=== PATIENT | female | born 1990 | race Hispanic/Latino ===

== ENCOUNTER 2021-10-01 14:56 | Emergency (ER) | payer SELFPAY ==
[2021-10-01] VITALS (15 sets, daily range): BP systolic 98–114; BP diastolic 60–83; PULSE 62–106; RESP 16–22; TEMP 35.6; O2SAT 96–100
--- NOTE | 2021-10-01 15:15 | ECG_ITS ---
Measurements Intervals [place] Rate: 73 P: 70 HI: 153 QRS: 40 QRSD: 85 T: 26 QT: 412 QTc: 456 Interpretive Statements SINUS RHYTHM NORMAL EKG NO PREVIOUS ECG AVAILABLE FOR COMPARISON Electronically Signed On 10-02-2021 18:06:23 CDT by Annie Rodriguez M.D.
[2021-10-01] MEDS: METOCLOPRAMIDE HCL INJ 10 MG/2 ML VIAL IV PUSH (15:35)
[2021-10-01] MEDS: diphenhydrAMINE HCl INJ 50 MG/ML VIAL IV PUSH (15:35)
[2021-10-01] MEDS: SODIUM CHLORIDE 0.9% IV 1,000 ML 999 ML IV CONT ×2 (15:36→17:49)
[2021-10-01] MEDS: PANTOPRAZOLE SODIUM IV 40 MG VIAL IV PUSH (15:38)
--- NOTE | 2021-10-01 15:54 | ED.NAVMDI ---
HPI - Nausea/Vomiting/Diarrhea General Chief complaint: Overdose Stated complaint: ate mushrooms Time Seen by Provider: 10/01/21 15:23 History of Present Illness HPI Narrative: 31-year-old [place]-speaking female presented to the emergency room complaining of nausea vomiting and diarrhea for 1 hour. Patient states that she was eating an unknown wild mushroom approximately a 1 hour prior to arrival. Stress patient has had multiple episodes of nonbilious and non bloody vomiting. Reports generalized abdominal pain. Related Data Allergies Allergy/AdvReac Type Severity Reaction Status Date / Time No Known Allergies Allergy Verified 10/01/21 15:35 Review of Systems Review of Systems: CONSTITUTIONAL: Denies fever, chills, or sweats. EYES: Denies visual changes, redness, or discharge. ENT: Denies rhinorrhea, congestion, sore throat, or otalgia. CARDIOVASCULAR: Denies chest pain, palpitations, or edema. RESPIRATORY: Denies cough or dyspnea. GASTROINTESTINAL: Reports abdominal pain, nausea, vomiting, and diarrhea. GENITOURINARY: Denies dysuria or hematuria. SKIN: Denies rash or itching. MUSCULOSKELETAL: Denies back pain, joint pain, or myalgia. NEUROLOGIC: Denies headache, numbness, dizziness, or weakness. PSYCHIATRIC: Denies anxiety or depression. Exam Narrative: GENERAL: Ill-appearing, well-nourished, no physical limitations, and moderate acute distress. HEAD: Normocephalic, atraumatic. EYES: Conjunctivae normal, PERRLA and EOMI. CHEST: Clear to auscultation. No respiratory distress. No wheezes rales or rhonchi. No tenderness. HEART: Regular rate and rhythm. No murmur heard. Normal peripheral pulses. ABDOMEN: Soft, upper abdominal tenderness nondistended, normal active bowel sounds. BACK: No CVA tenderness EXTREMITIES: Normal range of motion. No edema. No clubbing or cyanosis SKIN: Warm, dry, no rash. No noted wounds NEURO: No focal deficits. Alert and oriented x3. MAEW. CN's II-XI intact bilaterally, normal gait PSYCH: Cooperative. Normal mood and affect. Course Course Emergency Course: 1600: Case with poison control. Photos of the mushrooms were sent to their air traffic controller. Identified are considered nonlethal. They recommend symptomatic care. Vital Signs Vital signs: Vital Signs Temperature 96.0 F L 10/01/21 15:01 Pulse Rate 92 10/01/21 15:01 Respiratory Rate 22 H 10/01/21 15:01 Blood Pressure 114/83 10/01/21 15:01 Pulse Oximetry 100 10/01/21 15:01 Oxygen Delivery Room Air 10/01/21 15:01 Temperature 96.0 F L 10/01/21 15:01 Pulse Rate 62 10/01/21 17:15 Respiratory Rate 16 10/01/21 17:15 Blood Pressure 100/77 10/01/21 16:16 Pulse Oximetry 98 10/01/21 17:15 Oxygen Delivery Room Air 10/01/21 15:01 MDM - Nausea/Vomiting/Diarrhea Lab Data Result diagrams: 10/01/21 16:01 10/01/21 16:01 Labs: Lab Results 10/01/21 10/01/21 10/01/21 Range/Units 16:01 16:01 16:01 WBC 17.1 H (4.5-10.0) K/mm3 RBC 4.95 (4.2-5.4) M/mm3 Hgb 14.8 (12.0-15.0) g/dL Hct 45.1 (37.0-47.0) % MCV 91.1 (80-100) fl MCH 29.9 (26-34) pg MCHC 32.8 (32-36) g/dl RDW 12.2 (11.5-14.5) % Plt Count 259 (150-375) k/mm3 MPV 9.8 (7.4-10.4) fl Immature Gran % (Auto) Not Reportable Neut % (Auto) Not Reportable Lymph % (Auto) Not Reportable [place] % (Auto) Not Reportable Eos % (Auto) Not Reportable Baso % (Auto) Not Reportable Lymph # (Auto) Not Reportable [place] # (Auto) Not Reportable Eos # (Auto) Not Reportable Baso # (Auto) Not Reportable Abs Immat Gran (auto) Not Reportable Absolute Neuts (auto) Not Reportable Absolute Nucleated RBC Not Reportable Total Counted 100 Neutrophils % (Manual) 82 H (46-73) % Band Neutrophils % 6 (0-6) % Lymphocytes % (Manual) 10.0 L (18-44) % Monocytes % (Manual) 2 L (3-9) % Nucleated RBC % Not Reportable Abs
[2021-10-01 16:08] LABS: Hematocrit 45.1 % (37.0-47.0); Hemoglobin 14.8 g/dL (12.0-15.0); Mean Corpuscular HGB Conc 32.8 g/dl (32-36); Mean Corpuscular Hemoglobin 29.9 pg (26-34); Mean Corpuscular Volume 91.1 fl (80-100); Mean Platelet Volume 9.8 fl (7.4-10.4); Platelet Count Result 259 k/mm3 (150-375); Red Blood Count 4.95 M/mm3 (4.2-5.4); Red Cell Distribution Width 12.2 % (11.5-14.5); White Blood Count 17.1 K/mm3 (4.5-10.0)
[2021-10-01 16:19] LABS: Alanine Aminotransferase 24 U/L (6-35); Albumin Level 4.9 g/dL (3.5-5.1); Alkaline Phosphatase 107 U/L (38-126); Anion Gap 14 mmol/L (8-16); Aspartate Amino Transferase 29 U/L (14-36); Bilirubin,Total 0.4 mg/dL (0.2-1.3); Blood Urea Nitrogen 11 mg/dL (7-17); Calcium 8.9 mg/dL (8.4-10.2); Carbon Dioxide 22 mmol/L (22-30); Chloride 104 mmol/L (98-107); Estimated Glomerular Filt Rate > 60; Glucose 119 mg/dL (65-110); Potassium 3.6 mmol/L (3.4-5.0); Sodium 140 mmol/L (137-145)
[2021-10-01 16:23] LABS: Acetaminophen < 10 ug/mL (10-30); Ethanol < 10 mg/dL (<10); Salicylate < 1.0 mg/dL (2-20)
[2021-10-01] MEDS: HALOPERIDOL LACTATE 5 MG/ML VIAL IV PUSH (16:32)
[2021-10-01] MEDS: DICYCLOMINE HCL INJ 20 MG/2 ML VIAL IM (16:32)
[2021-10-01 16:44] LABS: Band Neutrophils Percent 6 % (0-6); Lymphocytes Absolute Manual 1.71 K/mm3 (1.1-4.5); Monocytes Absolute Manual 0.34 K/mm3 (0.1-0.90); Monocytes Percent Manual 2 % (3-9); Neutrophils Absolute Manual 15.04 K/mm3 (1.7-7.2); Neutrophils Percent Manual 82 % (46-73); Platelet Estimate Adequate (Adequate); Total Cells Counted 100
--- NOTE | 2021-10-01 17:25 | PC.NURSE ---
Pt ambulatory to restroom. Pedrito, INDUSTRIAL ROBOTICS MECHANIC at bedside using biology laboratory assistant to discuss results and treatment plan.
--- NOTE | 2021-10-01 18:39 | PC.NURSE ---
Pt report relief of nausea
--- NOTE | 2021-10-01 19:05 | PC.NURSE ---
NS still infusing at this time. Pt to be discharged upon completion of normal saline.
--- NOTE | 2021-10-01 19:27 | ED.OVERDOSE ---
HPI - Overdose General Chief Complaint: Nausea/Vomiting/Diarrhea <Reba Jett PA-C - Last Filed: 10/01/21 19:39> Stated Complaint: ate mushrooms <Reba Jett PA-C - Last Filed: 10/01/21 19:39> Time Seen by Provider: 10/01/21 15:23 <Reba Jett PA-C - Last Filed: 10/01/21 19:39> Source: patient <Reba Jett PA-C - Last Filed: 10/01/21 19:39> Mode of arrival: ambulatory <FABI Morris Last Filed: 10/01/21 19:39> Limitations: no limitations <FABI Morris Last Filed: 10/01/21 19:39> History of Present Illness HPI Narrative: Patient is a 31 y/o female who presents to the ED with report of accidental ingestion. Patient was hiking with family today around 9-10 am at ate some wild mushrooms. Later developed nausea, vomiting, diarrhea, abdominal cramping, which prompted presentation to the ED. Patient has a picture of mushroom. <Reba Jett PA-C - Last Filed: 10/01/21 19:39> Related Data Allergies/Adverse Reactions: Allergies Allergy/AdvReac Type Severity Reaction Status Date / Time No Known Allergies Allergy Verified 10/01/21 15:35 <Reba Jett PA-C - Last Filed: 10/01/21 19:39> Review of Systems Review of Systems: CONSTITUTIONAL: Denies fever. EYES: Denies visual changes. CARDIOVASCULAR: Denies chest pain. RESPIRATORY: Denies dyspnea. GASTROINTESTINAL: Reports abdominal pain, nausea, vomiting, and diarrhea. NEUROLOGIC: Denies headache. <FABI Morris Last Filed: 10/01/21 19:39> All systems reviewed & are unremarkable except as noted in HPI and below <Reba Jett PA-C - Last Filed: 10/01/21 19:39> PMFSH Past Medical History Medical History: Medical History (Updated 10/02/21 @ 00:00 by Background Daemon) No pertinent past medical history <Reba Jett PA-C - Last Filed: 10/01/21 19:39> Surgical History Surgical History: Surgical History (Updated 10/01/21 @ 19:30 by Reba Jett PA-C) No pertinent past surgical history <Reba Jett PA-C - Last Filed: 10/01/21 19:39> Social History Social History: Social History (Updated 10/01/21 @ 19:30 by Reba Jett PA-C) Smoking status: Never smoker <Reba Jett PA-C - Last Filed: 10/01/21 19:39> Exam Narrative: GENERAL: Ill-appearing, well-nourished, no physical limitations HEAD: Normocephalic, atraumatic. EYES: Conjunctivae normal, PERRLA and EOMI. CHEST: Clear to auscultation. No respiratory distress. No wheezes rales or rhonchi. No tenderness. HEART: Regular rate and rhythm. No murmur heard. Normal peripheral pulses. ABDOMEN: Soft, generalized tenderness, nondistended, normal active bowel sounds. EXTREMITIES: Normal range of motion. No edema. No clubbing or cyanosis SKIN: Warm, dry, no rash. No noted wounds NEURO: No focal deficits. Alert and oriented x3. MAEW. CN's II-XI intact bilaterally, normal gait PSYCH: Cooperative. Normal mood and affect. <Kamlesh Sultana, REMOTE SENSING ANALYST - Last Filed: 10/06/21 16:59> Course Vital Signs Vital signs: Vital Signs Temperature 35.6 C L 10/01/21 15:01 Pulse Rate 92 10/01/21 15:01 Respiratory Rate 22 H 10/01/21 15:01 Blood Pressure 114/83 10/01/21 15:01 Pulse Oximetry 100 10/01/21 15:01 Oxygen Delivery Room Air 10/01/21 15:01 Temperature 35.6 C L 10/01/21 15:01 Pulse Rate 106 H 10/01/21 19:25 Respiratory Rate 18 10/01/21 19:25 Blood Pressure 100/60 10/01/21 19:25 Pulse Oximetry 100 10/01/21 19:25 Oxygen Delivery Room Air 10/01/21 15:01 <Reba Jett PA-C - Last Filed: 10/01/21 19:39> Vital Signs Temperature 35.6 C L 10/01/21 15:01 Pulse Rate 92 10/01/21 15:01 Respiratory Rate 22 H 10/01/21 15:01 Blood Pressure 114/83 10/01/21 15:01 Pulse Oximetry 100 10/01/21 15:01 Oxygen Delivery Room Air 10/01/21 15:01 Temperature 35.6 C L 10/01/21 15:01 Pulse Rate 106 H 10/01/21 19:25 Respiratory Rate 18
[2021-10-01 19:44] LABS: Appearance Urine Clear (Clear); Bilirubin Urine Negative (Negative); Blood Urine Negative (Negative); Color Urine Yellow (Yellow); Glucose Urine UA Negative (Negative); Ketones Urine 3+ mg/dL (Negative); Leukocyte Esterase Ur Negative LEU/UL (Negative); Nitrate Urine Negative (Negative); Protein Urine Negative (Negative); Specific Grav Ur 1.025 (1.001-1.035); Urobilinogen Urine 0.2 mg/dL (<2.0); pH Urine 5.5 (5.0-9.0)
[2021-10-01 19:49] LABS: Mucus Urine Rare /lpf; Squamous Epithelial Cell Urine Rare /hpf (Few); WBC Urine 0-3 /hpf
[2021-10-01 19:50] LABS: Add Urine Microscopic? YES
== END 2021-10-01 19:30 | disposition home or self-care (01) ==
PROVIDERS: Emergency Medicine; Emergency Provider Nurse Practitioner Family
DX: T62.0X1A Toxic effect of ingested mushrooms, accidental (unintentional), initial encounter (principal)
CPT/HCPCS: 36415; 80053; 80307; 81001; 85025; 93005; 96361; 96372; 96374; 96375; 99284; C9113; J0500; J1200; J1630; J2765; J7030